=== PATIENT | male | born 1980 | race American Indian/Alaskan Native ===

== ENCOUNTER 2018-10-01 12:20 | Emergency (ER) | payer SELFPAY ==
[2018-10-01 12:41] VITALS: BP 187/101
--- NOTE | 2018-10-01 12:43 | Emergency Department Report ---
Blank Doc - Documentation Documentation: This is a 37-year-old male that presents with hematuria. This initial assessment/diagnostic orders/clinical plan/treatment(s) is/are subject to change based on patient's health status, clinical progression and re- assessment by fellow clinical providers in the ED. Further treatment and workup at subsequent clinical providers discretion. Patient/guardians urged not to elope from the ED as their condition may be serious if not clinically assessed and managed. Initial orders include: 1- Patient sent to [facility] for further evaluation and treatment 2- UA
[2018-10-01 13:30] LABS: Bilirubin,Urine NEG (Negative); Blood,Urine LG (Negative); Color,Urine Yellow (Yellow); Urobilinogen,Urine < 2.0 mg/dL (<2.0)
[2018-10-01 13:36] LABS: RBC,Urine > 182.0 /HPF (0.0-6.0)
[2018-10-01] MEDS ORDERED: LEVAQUIN PO ONE (14:09)
[2018-10-01] MEDS ORDERED: ZITHROMAX PO ONE (14:09)
[2018-10-01] MEDS ORDERED: ROCEPHIN IM ONE (14:09)
[2018-10-01] MEDS ORDERED: XYLOCAINE 1% MPF 5 mL INFILTRATI ONE (14:09)
--- NOTE | 2018-10-01 14:29 | Emergency Department Report ---
ED Male HPI - General Chief complaint: Urogenital-Male Stated complaint: BLOOD IN URINE Time Seen by Provider: 10/01/18 12:42 Source: patient Mode of arrival: Ambulatory Limitations: No Limitations - History of Present Illness Initial comments: Patient is a 37-year-old -[place] male who is presenting with hematuria for the past 2 days. Patient states there is some discomfort with urination as well. He denies testicular pain or penile discharge. Patient states has some mild left lower quadrant discomfort. Denies any back pain nausea vomiting fevers or chills at this time. Patient states the pain his abdomen is achy in nature. Patient states is worse when he is leaning to the side and better when he sits straight up. - Related Data Previous Rx's Medication Instructions Recorded Last Taken Type Ciprofloxacin HCl [Ciprofloxacin 500 mg PO Q12HR #14 tab 10/01/18 Unknown Rx TAB] traMADol [Ultram] 50 mg PO Q6HR PRN #12 tablet 10/01/18 Unknown Rx Allergies Allergy/AdvReac Type Severity Reaction Status Date / Time No Known Allergies Allergy Unverified 10/01/18 12:40 ED Review of Systems ROS: Stated complaint: BLOOD IN URINE Other details as noted in HPI Comment: All other systems reviewed and negative ED Past Medical Hx - Past Medical History Previous Medical History?: Yes Hx Hypertension: Yes - Surgical History Past Surgical History?: Yes Additional Surgical History: bilat ankle sx, cyst removal. - Medications Home Medications: Home Medications Medication Instructions Recorded Confirmed Last Taken Type Ciprofloxacin HCl [Ciprofloxacin 500 mg PO Q12HR #14 tab 10/01/18 Unknown Rx TAB] traMADol [Ultram] 50 mg PO Q6HR PRN #12 tablet 10/01/18 Unknown Rx ED Physical Exam - General Limitations: No Limitations General appearance: alert, in no apparent distress - Head Head exam: Present: atraumatic, normocephalic - Eye Eye exam: Present: normal appearance, PERRL, EOMI - ENT ENT exam: Present: mucous membranes moist - Neck Neck exam: Present: normal inspection - Respiratory Respiratory exam: Present: normal lung sounds bilaterally. Absent: respiratory distress, wheezes, rales, rhonchi - Cardiovascular Cardiovascular Exam: Present: regular rate, normal rhythm, normal heart sounds. Absent: systolic murmur, diastolic murmur, rubs, gallop - GI/Abdominal GI/Abdominal exam: Present: soft, normal bowel sounds. Absent: distended, tenderness, guarding, rebound - Rectal Rectal exam: Present: deferred - Extremities Exam Extremities exam: Present: normal inspection - Back Exam Back exam: Present: normal inspection - Neurological Exam Neurological exam: Present: alert, oriented X3 - Psychiatric Psychiatric exam: Present: normal affect, normal mood - Skin Skin exam: Present: warm, dry, intact, normal color. Absent: rash ED Course Vital Signs 10/01/18 12:40 Temperature 98.6 F Pulse Rate 74 Respiratory 20 Rate Blood Pressure 187/101 [Right] O2 Sat by Pulse 99 Oximetry ED Medical Decision Making - Lab Data Lab Results 10/01/18 Range/Units 13:02 Urine Color Yellow (Yellow) Urine Turbidity Slightly-cloudy (Clear) Urine pH 6.0 (5.0-7.0) Ur Specific [place] 1.018 (1.003-1.030) Urine Protein 30 mg/dl (Negative) mg/dL Urine Glucose (UA) Neg (Negative) mg/dL Urine Ketones Neg (Negative) mg/dL Urine Blood Lg (Negative) Urine Nitrite Neg (Negative) Urine Bilirubin Neg (Negative) Urine Urobilinogen < 2.0 (<2.0) mg/dL Ur Leukocyte Esterase Mod (Negative) Urine WBC (Auto) 144.0 H (0.0-6.0) /HPF Urine RBC (Auto) > 182.0 (0.0-6.0) /HPF U Epithel Cells (Auto) 1.0 (0-13.0) /HPF Urine Yeast (Budding) 2+ /HPF - Medical Decision Making H and 37-year-old [place] male who presented with hematuria. Urinalysis shows the patient has a significant infection. Because of the patient's age and if we have the patient follow up with urology. Patient does not have signs and symptoms of obstructive uropathy. Patient denies any testicular pain. Patient will be treated with Cipro at home and was given first dose of Levaquin. Patient also given Rocephin and azithromycin. Patient discharged home. Critical care attestation.: If time is entered above; I have spent that time in minutes in the direct care of this critically ill patient, excluding procedure time. ED Disposition Clinical Impression: Acute cystitis Qualifiers: Hematuria presence: with hematuria Qualified Code(s): N30.01 - Acute cystitis with hematuria Disposition: DC- TO HOME OR SELFCARE Is pt being admited?: No Does the pt Need Aspirin: No Condition: Stable Instructions: Acute Hematuria (ED), Urinary Tract Infection in Men (ED) Referrals: ELIN PANCHAL MD [Staff Physician] - 3-5 Days Time of Disposition: 14:29
== END 2018-10-01 15:13 | disposition home or self-care (01) ==
LOC: ED 12:20
DX: N30.00 Acute cystitis without hematuria (principal); I10 Essential (primary) hypertension; Z98.890 Other specified postprocedural states; Z79.899 Other long term (current) drug therapy
CPT/HCPCS: 81001; 87086; 87591; 96372; 99283; J0696